=== PATIENT | female | born 1985 | race Hispanic/Latino ===

== ENCOUNTER 2017-06-10 13:12 | Outpatient (CLI) | payer BC ==
--- NOTE | 2017-06-10 13:57 | Ultrasound Report ---
Targeted left breast ultrasound. History: Palpable lump in the left breast at the 12:00 position. There no prior studies for comparison. Findings: At 12:00 position of the left breast, 7 cm from the nipple, there is a cluster of tiny cysts the overall measurement of which is 7 x 3 x 9 mm. No acoustic shadowing or other suspicious findings are seen. Impression: Small cystic cluster at 12:00. BI-RADS code: 2. Recommendation: Routine screening schedule.
== END 2017-06-10 13:13 | disposition home or self-care (01) ==
LOC: SPVWC 13:12
PROVIDERS: ATTEND Obstetrics & Gynecology
DX: N60.02 Solitary cyst of left breast (principal); N63.20 Unspecified lump in the left breast, unspecified quadrant